=== PATIENT | female | born 1945 | race Caucasian/White ===

== ENCOUNTER 2017-09-08 09:30 | Emergency (ER) | payer MEDICARE ==
[~2017-09-08] VITALS: Ht 165.1 cm; Wt 127.7 kg
[~2017-09-08 09:30] MED LIST: ADVAIR 100/28 DISKU1 IH; ADVAIR DISKUS 11 DSK IH; ALBUTEROL0.09 MG/A4 IH; ASMANEX TW0.22 MG/A1 IH; ASPIRIN 32325 MG/TAB PO; BENADRYL25 M2 PO; CALCI-CHEW500 MG PO; CARVEDILOL25 MG PO; CIPRO 250MG TA250 MG PO; CITRACAL + D 251 TAB PO; COREG25 MG PO; CRANBERRY1 CAP PO; ELIQUIS5 MG PO; FUROCOT40 MG PO; FUROSEMIDE40 MG PO; GOOD NEIGHBOR325 MG PO; HYDROCHLOR50 MG PO; IRON FERROUS S325 MG PO; LISINOPRIL10 MG PO; LISINOPRIL20 MG PO; MACROBID 1100 MG/CAP PO; METOPROLOL TART50 MG PO; NORVASC2.5 MG PO; NYSTATIN AND TR1 CR1 TP; PANTOPRAZOLE40 MG PO; POTASSIUM CHLO10 ME2 PO; POTASSIUM20 MEQ PO; PROBIOTIC FORMU1 CAP PO; PROTONIX TR40 MG PO; RITE AID CRANB425 MG PO; ST. JOSEPH81 M2 PO; SYNTHROID0.1 MG PO; SYNTHROID0.112 MG PO; TEMOVATE CREAM15 GM TP; TIKOSYN0.25 MG PO; VITAMIN D5000 IU PO; VOLTAREN GEL 1%1 TU TP; ZYRTEC10 M1 PO
[2017-09-08] MEDS ORDERED: LISINOPRIL10 MG PO (09:40)
[2017-09-08] MEDS ORDERED: FLECAINIDE ACE100 MG PO (09:40)
[2017-09-08] MEDS ORDERED: ELIQUIS5 MG PO (09:42)
[2017-09-08] MEDS ORDERED: ASPIR LOW81 MG PO (09:42)
[2017-09-08] MEDS ORDERED: CARTIA XT240 MG PO (09:44)
[2017-09-08 11:24] VITALS: BP 158/77
== END 2017-09-08 11:21 | disposition home or self-care (01) ==
LOC: ED 09:30
DX: K59.00 Constipation, unspecified (principal); I10 Essential (primary) hypertension; K21.9 Gastro-esophageal reflux disease without esophagitis; E89.0 Postprocedural hypothyroidism; Z79.82 Long term (current) use of aspirin

== ENCOUNTER 2018-01-21 23:05 | Emergency (ER) | payer MEDICARE ==
[~2018-01-21] VITALS: Ht 165.1 cm; Wt 125.0 kg
[~2018-01-21 23:05] MED LIST changes: +ASPIR LOW81 MG PO; +CARTIA XT240 MG PO; +FLECAINIDE ACE100 MG PO
[2018-01-21] MEDS ORDERED: AUGMENTIN 875-1 EAC1 PO (23:38)
[2018-01-21] MEDS ORDERED: ZESTRIL10 M1 PO (23:39)
[2018-01-21] MEDS ORDERED: COREG12.5 M1 PO (23:39)
[2018-01-21] MEDS ORDERED: ELIQUIS5 MG PO (23:39)
[2018-01-21] MEDS ORDERED: FLECAINIDE ACE100 MG PO (23:39)
[2018-01-21] MEDS ORDERED: SYNTHROID RP0.088 MG PO (23:40)
[2018-01-21] MEDS ORDERED: CHILDREN'S ASPI81 M1 PO (23:40)
[2018-01-21] MEDS ORDERED: LASIX40 M1 PO (23:40)
[2018-01-21] MEDS ORDERED: CALCIUM + D3 E1 EACH PO (23:41)
[2018-01-21] MEDS ORDERED: POTASSIUM CHLO20 ME4 PO (23:41)
[2018-01-21] MEDS ORDERED: PROTONIX TR40 M1 PO (23:41)
[2018-01-21] MEDS ORDERED: OMEGA DHA92 MG PO (23:42)
[2018-01-21] MEDS ORDERED: ADVAIR DISKUS1 DS2 IH (23:42)
[2018-01-21] MEDS ORDERED: ZYRTEC10 M3 PO (23:42)
[2018-01-21] MEDS ORDERED: CRANBERRY 12,61 EACH PO (23:42)
[2018-01-21] MEDS ORDERED: MYCOLOG CREAM 115 GM TP (23:43)
[2018-01-21] MEDS ORDERED: PROAIR HFA0.09 MG/AC IH (23:43)
[2018-01-21] MEDS ORDERED: CLOTRIMAZOLE/BE1 CRE TP (23:44)
[2018-01-21] MEDS ORDERED: OLUX100 GM TP (23:44)
[2018-01-21 23:58] LABS: URINE APPEARANCE CLEAR; URINE BILIRUBIN NEGATIVE (NEGATIVE); URINE BLOOD 50 ery/uL (NEGATIVE); URINE COLOR YELLOW; URINE GLUCOSE NEGATIVE (NEGATIVE); URINE KETONE NEGATIVE (NEGATIVE); URINE LEUKOCYTE ESTERASE TRACE (NEGATIVE); URINE NITRATE NEGATIVE (NEGATIVE); URINE PROTEIN(semi-quant) NEGATIVE (NEGATIVE); URINE UROBILINOGEN NORMAL (NORMAL)
[2018-01-22 00:20] VITALS: BP 140/66
== END 2018-01-22 00:20 | disposition home or self-care (01) ==
LOC: ED 23:05
PROVIDERS: Family Medicine
DX: K57.92 Diverticulitis of intestine, part unspecified, without perforation or abscess without bleeding (principal); R30.0 Dysuria; I48.91 Unspecified atrial fibrillation; Z79.01 Long term (current) use of anticoagulants; I48.92 Unspecified atrial flutter; Z79.899 Other long term (current) drug therapy; Z79.82 Long term (current) use of aspirin

== ENCOUNTER 2018-02-08 19:43 | Emergency (ER) | payer MEDICARE ==
[~2018-02-08 19:43] MED LIST changes: +ADVAIR DISKUS1 DS2 IH; +AUGMENTIN 875-1 EAC1 PO; +CALCIUM + D3 E1 EACH PO; +CHILDREN'S ASPI81 M1 PO; +CLOTRIMAZOLE/BE1 CRE TP; +COREG12.5 M1 PO; +CRANBERRY 12,61 EACH PO; +LASIX40 M1 PO; +MYCOLOG CREAM 115 GM TP; +OLUX100 GM TP; +OMEGA DHA92 MG PO; +POTASSIUM CHLO20 ME4 PO; +PROAIR HFA0.09 MG/AC IH; +PROTONIX TR40 M1 PO; +SYNTHROID RP0.088 MG PO; +ZESTRIL10 M1 PO; +ZYRTEC10 M3 PO
[2018-02-08 21:02] LABS: EOS # 0.2 (0.04-0.40); EOS % 3.4 % (1.0-5.0); HEMATOCRIT 35.6 % (37.0-47.0); HEMOGLOBIN 11.4 g/dL (12.5-16.0); LYMPH# 1.1 (1.50-4.00); MEAN CELL VOLUME 87 fl (78-100); MEAN CORPUSCULAR HEMOGLOBIN 28 pg (27-31); MEAN CORPUSCULAR HGB CONC 32 g/dL (33-37); MEAN PLATELET VOLUME 9.4 fl (7.4-10.4); MONO # 0.8 (0.20-0.80); NEU # 4.6 (1.40-6.50); PLATELET COUNT 300 K/mm3 (130-400); RED BLOOD COUNT 4.11 M/mm3 (4.10-5.30); RED CELL DISTRIBUTION WIDTH 14.5 % (11.5-14.5); WHITE BLOOD COUNT 6.7 K/mm3 (4.8-10.8)
[2018-02-08 21:05] LABS: POTASSIUM 3.6 mmol/L (3.6-5.0); TOTAL BILIRUBIN 0.8 mg/dL (0.2-1.3); TOTAL PROTEIN 6.3 g/dL (6.3-8.2)
[2018-02-08 22:40] VITALS: BP 146/99
== END 2018-02-08 22:40 | disposition home or self-care (01) ==
LOC: ED 19:43
PROVIDERS: Nurse Practitioner
DX: K59.00 Constipation, unspecified (principal); Z87.19 Personal history of other diseases of the digestive system; Z79.899 Other long term (current) drug therapy; Z79.01 Long term (current) use of anticoagulants; Z79.82 Long term (current) use of aspirin

== ENCOUNTER 2020-08-13 10:58 | Outpatient (RCR) | payer MEDICARE ==
[~2020-08-13 10:58] MED LIST changes: -ADVAIR DISKUS1 DS2 IH; +ADVAIR DISKUS1 DSK IH; +COREG 3.123.125 MG/T PO; -COREG12.5 M1 PO; -CRANBERRY 12,61 EACH PO; +CRANBERRY250 MG PO; +IMPOYZ60 GM TOP; -OLUX100 GM TP; +PANTOPRAZOLE SO40 MG PO; -PROTONIX TR40 M1 PO; -ZESTRIL10 M1 PO; +ZESTRIL20 M1 PO
== END 2020-11-11 | disposition home or self-care (01) ==
LOC: PT
DX: M54.16 Radiculopathy, lumbar region (principal)

== ENCOUNTER 2021-01-20 11:58 | Emergency (ER) | payer MEDICARE ==
[~2021-01-20] VITALS: Ht 165.1 cm; Wt 129.5 kg
[2021-01-20] MEDS ORDERED: ALDACTONE 25MG25 MG PO (12:58)
[2021-01-20] MEDS ORDERED: ASPIRIN E.C. 8181 MG PO (12:58)
[2021-01-20] MEDS ORDERED: SYNTHROID RP0.1 MG PO (12:59)
[2021-01-20] MEDS ORDERED: VITAMIN D325 MC2 PO (13:02)
[2021-01-20] MEDS ORDERED: PATADAY5 ML OU (13:06)
[2021-01-20] MEDS ORDERED: MULTIVITAMINS1 EACH PO (13:06)
[2021-01-20 14:02] VITALS: BP 138/68
== END 2021-01-20 14:17 | disposition home or self-care (01) ==
LOC: ED 11:58
DX: S09.90XA Unspecified injury of head, initial encounter (principal); M25.561 Pain in right knee; M25.551 Pain in right hip; M25.511 Pain in right shoulder; I48.91 Unspecified atrial fibrillation; I10 Essential (primary) hypertension; E03.9 Hypothyroidism, unspecified; K21.9 Gastro-esophageal reflux disease without esophagitis; Z79.01 Long term (current) use of anticoagulants; Z79.899 Other long term (current) drug therapy; Z79.890 Hormone replacement therapy; W01.0XXA Fall on same level from slipping, tripping and stumbling without subsequent striking against object, initial encounter; Y92.009 Unspecified place in unspecified non-institutional (private) residence as the place of occurrence of the external cause

== ENCOUNTER 2021-01-26 00:04 | Emergency (ER) | payer MEDICARE ==
[~2021-01-26] VITALS: Ht 165.1 cm; Wt 129.5 kg
[~2021-01-26 00:04] MED LIST changes: +ALDACTONE 25MG25 MG PO; +ASPIRIN E.C. 8181 MG PO; +MULTIVITAMINS1 EACH PO; +PATADAY5 ML OU; +SYNTHROID RP0.1 MG PO; +VITAMIN D325 MC2 PO
[2021-01-26 00:15] VITALS: BP 120/81
[2021-01-26] MEDS ORDERED: FLAGYL500 M1 PO (00:19)
== END 2021-01-26 03:06 | disposition home or self-care (01) ==
LOC: ED 00:04
DX: F07.81 Postconcussional syndrome (principal); I48.91 Unspecified atrial fibrillation; E03.9 Hypothyroidism, unspecified; I10 Essential (primary) hypertension; K21.9 Gastro-esophageal reflux disease without esophagitis; E66.9 Obesity, unspecified; Z68.42 Body mass index [BMI] 45.0-49.9, adult; Z79.01 Long term (current) use of anticoagulants; Z79.890 Hormone replacement therapy; Z79.899 Other long term (current) drug therapy; W01.0XXA Fall on same level from slipping, tripping and stumbling without subsequent striking against object, initial encounter

== ENCOUNTER 2021-10-15 14:37 | Emergency (ER) | payer MEDICARE ==
[~2021-10-15 14:37] MED LIST changes: +FLAGYL500 M1 PO
[2021-10-15] MEDS ORDERED: ZYLOPRIM 100MG100 MG PO (15:10)
[2021-10-15] MEDS ORDERED: DOFETILIDE250 MCG PO (15:10)
[2021-10-15 16:00] LABS: BASO # 0.04 K/mm3 (0.02-0.10); EOS # 0.15 K/mm3 (0.04-0.40); EOS % 1.7 % (1.0-5.0); HEMATOCRIT 43.4 % (37.0-47.0); HEMOGLOBIN 13.9 g/dL (12.5-16.0); MEAN CELL VOLUME 92 fl (78-100); MEAN CORPUSCULAR HEMOGLOBIN 30 pg (27-31); MEAN CORPUSCULAR HGB CONC 32 g/dL (33-37); MEAN PLATELET VOLUME 9.7 fl (7.4-10.4); MONO # 0.79 K/mm3 (0.20-0.80); NEU # 6.21 K/mm3 (1.40-6.50); PLATELET COUNT 283 K/mm3 (130-400); RED BLOOD COUNT 4.71 M/mm3 (4.10-5.30); RED CELL DISTRIBUTION WIDTH 14.3 % (11.5-14.5); WHITE BLOOD COUNT 8.8 K/mm3 (4.8-10.8)
[2021-10-15 16:18] LABS: ALBUMIN 4.1 g/dL (3.4-4.8); POTASSIUM 4.3 mmol/L (3.5-5.1); SODIUM 141 mmol/L (136-145)
[2021-10-15 16:19] LABS: CALCIUM 9.9 mg/dL (8.3-10.5)
[2021-10-15 16:20] LABS: GLUCOSE 114 mg/dL (65-105)
[2021-10-15 16:22] LABS: CARBON DIOXIDE 27 mmol/L (23-31); TOTAL BILIRUBIN 0.5 mg/dL (0.2-1.2)
[2021-10-15 16:26] LABS: AST-SGOT 30 U/L (5-34)
[2021-10-15 16:27] LABS: ALT/SGPT 24 U/L (0-55)
[2021-10-15 16:27] LABS: URINE APPEARANCE CLEAR; URINE BILIRUBIN NEGATIVE (NEGATIVE); URINE BLOOD TRACE (NEGATIVE); URINE COLOR YELLOW; URINE GLUCOSE NEGATIVE (NEGATIVE); URINE KETONE NEGATIVE (NEGATIVE); URINE LEUKOCYTE ESTERASE NEGATIVE (NEGATIVE); URINE MUCUS PRESENT (NOT PRESENT); URINE NITRATE NEGATIVE (NEGATIVE); URINE PROTEIN(semi-quant) NEGATIVE (NEGATIVE); URINE UROBILINOGEN NORMAL (NORMAL); URINE WBC 0-1 /hpf (0-3)
[2021-10-15 16:28] LABS: TROPONIN-I < 0.030 ng/mL (<0.030)
[2021-10-15] MEDS ORDERED: CARDIZEM 60MG T60 MG PO (17:25)
[2021-10-15 17:35] VITALS: BP 136/73
== END 2021-10-15 17:35 | disposition home or self-care (01) ==
LOC: ED 14:37
PROVIDERS: Family Medicine
DX: I48.91 Unspecified atrial fibrillation (principal); Z79.01 Long term (current) use of anticoagulants; Z91.040 Latex allergy status; Z86.79 Personal history of other diseases of the circulatory system; Z28.310 Unvaccinated for COVID-19
CPT/HCPCS: J7030

== ENCOUNTER 2022-12-01 17:39 | Inpatient (IN) | payer MEDICARE ==
[~2022-12-01] VITALS: Ht 165.1 cm; Wt 133.1 kg
[~2022-12-01 17:39] MED LIST changes: +CARDIZEM 60MG T60 MG PO; +DOFETILIDE250 MCG PO; +LEVOXYL0.088 MG PO; +PROBIOTIC1 EAC1 PO; +ZYLOPRIM 100MG100 MG PO
[2022-12-01 18:05] VITALS: BP 171/98
--- NOTE | 2022-12-01 19:00 | NUR ---
PATIENT ADMITED FROM ED. A&OX4, WALKS WITH CANE, STANDBY ASSIST. PATIENT DENIES PAIN/DISCOMFORT AT THIS TIME. PATIENT HAS GLASSES AND BILAT HEARING AIDES. DENIES NEEDS OR COMPLAINTS AT THIS TIME. CHAIR ALARM ON, CALL LIGHT WITHIN REACH
--- NOTE | 2022-12-01 19:48 | NUR ---
REPORT GIVEN TO NATALIE TORRES
--- NOTE | 2022-12-01 20:45 | NUR ---
Report received from Dee ESTRADA. Patient resting in recliner with feet dangling. IV Cardizem infusing via pump. IV site patent to L AC. A/O x4. Denies pain. TELE in place. HRR at current time. Assessment completed. HS medications taken whole without difficulty. Denies questions, wants or needs at this time. Call light in reach.
[2022-12-01 21:56] VITALS: BP 132/73
--- NOTE | 2022-12-01 22:00 | NUR ---
STEREOTYPER reports patient refused SCD's. States "I don't think they are necessary". Patient made aware of reasoning behind SCD's to prevent blood clots but refused.
--- NOTE | 2022-12-01 22:58 | NUR ---
Requests and given Tylenol for neck, shoulder and back pain. States she has arthritis and "these beds are horrible.".
[2022-12-02 02:00] VITALS: BP 165/90
--- NOTE | 2022-12-02 02:00 | NUR ---
Awake and up to BR with SBA and cane. States she has not been able to sleep all night, "my mind just won't shut off and the bed hurts my back". Up to recliner now with legs elevated at this time.
--- NOTE | 2022-12-02 03:47 | NUR ---
Assisted to BR and back to bed per request. States the recliner is too uncomfortable. Still has not slept per report.
--- NOTE | 2022-12-02 05:56 | NUR ---
AM medication taken. Up to BR with SBA. States she is a little nauseated this AM but declines offer of nausea medication.
[2022-12-02 06:06] VITALS: BP 129/76
--- NOTE | 2022-12-02 06:54 | NUR ---
Report to Jackie FUENTES.
--- NOTE | 2022-12-02 07:00 | NUR ---
RESUMED CARE FROM NATALIE TORRES.
[2022-12-02 07:05] LABS: BASO # 0.02 K/mm3 (0.02-0.10); EOS # 0.17 K/mm3 (0.04-0.40); EOS % 2.5 % (1.0-5.0); HEMATOCRIT 39.4 % (37.0-47.0); HEMOGLOBIN 12.6 g/dL (12.5-16.0); LYMPH# 1.61 K/mm3 (1.50-4.00); MEAN CELL VOLUME 95 fl (78-100); MEAN CORPUSCULAR HEMOGLOBIN 30 pg (27-31); MEAN CORPUSCULAR HGB CONC 32 g/dL (33-37); MEAN PLATELET VOLUME 9.6 fl (7.4-10.4); MONO # 0.69 K/mm3 (0.20-0.80); NEU # 4.26 K/mm3 (1.40-6.50); PLATELET COUNT 251 K/mm3 (130-400); RED BLOOD COUNT 4.16 M/mm3 (4.10-5.30); RED CELL DISTRIBUTION WIDTH 15.2 % (11.5-14.5); WHITE BLOOD COUNT 6.8 K/mm3 (4.8-10.8)
[2022-12-02 07:17] LABS: ALBUMIN 3.4 g/dL (3.4-4.8); POTASSIUM 3.7 mmol/L (3.5-5.1)
[2022-12-02 07:18] LABS: CALCIUM 8.8 mg/dL (8.3-10.5)
[2022-12-02 07:19] LABS: TOTAL PROTEIN 6.4 g/dL (6.2-8.1)
--- NOTE | 2022-12-02 07:19 | NUR ---
PATIENT UNCOOPERATIVE WITH STAFF THIS MORNING. REFUSING GAIT BELT AND CANE, SWATTING AWAY THE GAIT BELT PCT ATTEMPTED PLACEMENT. PCT REPORTED TO THIS NURSE. THIS NURSE ANSWERED BATHROOM CALL LIGHT AND PATIENT CONTINUED TO REFUSE USE OF ASSISTIVE DEVICES. YELLING AT STAFF AND MAKING COMMENTS LIKE "IF YOU TRY AGAIN, I'M GOING TO" WITHOUT CONITNUING STATEMENT. PATIENT ASSISTED TO RECLINER FROM BATHROOM AT THIS TIME WITH SBA. CALL LIGHT WITHIN REACH, CHAIR ALARMED.
[2022-12-02 07:21] LABS: TOTAL BILIRUBIN 0.5 mg/dL (0.2-1.2)
--- NOTE | 2022-12-02 08:40 | NUR ---
PATIENT A&OX4. DENIES PAIN. REPORTS NOT SLEEPING WELL LAST NIGHT AND WORRIED ABOUT INSURANCE CHANGES. DENIES HEADAHCE, SOA, DIZZINESS, N/V/D. FREIDA BUSTILLOS D/C'd THIS AM, RATE CONTROLLED IN [address] IN [address]. [address]. GOEL IN WITH PATIENT THIS AM AND DISCHARGE INSTRUCTIONS REVIEWED. ALL QUESTIONS ANSWERED AT THIS TIME. PATIENT TO SET UP FOLLOW UP APPT WITH [facility]. PATIENT REQUESTS TO TAKE AM MEDICATIONS AT HOME AND TO WAIT IN ER WAITING ROOM FOR TO PICK HER UP. ALL PERSONAL BELONGINGS TAKEN WITH.
== END 2022-12-02 08:40 | disposition home or self-care (01) | DRG 310 ==
LOC: MED/SURG 17:39
PROVIDERS: ADMIT Family Medicine
DX: I48.91 Unspecified atrial fibrillation (principal); I10 Essential (primary) hypertension; E03.9 Hypothyroidism, unspecified; K21.9 Gastro-esophageal reflux disease without esophagitis; M10.9 Gout, unspecified; E55.9 Vitamin D deficiency, unspecified; J30.9 Allergic rhinitis, unspecified; Z79.01 Long term (current) use of anticoagulants; Z79.890 Hormone replacement therapy